=== PATIENT | female | born 1995 | race Caucasian/White ===

== ENCOUNTER 2018-07-10 02:02 | Emergency (ER) | payer BC ==
[~2018-07-10] VITALS: Ht 149.9 cm; Wt 52.2 kg
--- NOTE | 2018-07-10 02:03 | NUR ---
"I GOT ANXIOUS AND ANGRY AND GOT A RAZOR AND CUT MY LT WRIST" PT IS ALERT AND ORIENTED ABLE TO AMBULATE. VSS NO ACUTE DISTRESS AT THIS TIME. WILL CONTINUE TO MONITOR FOR ANY CHANGES DURING THE SHIFT.
--- NOTE | 2018-07-10 02:04 | NUR ---
ER AT BEDSIDE FOR EVAL
[2018-07-10 02:34] LABS: BASOPHILS % (AUTO) 0.4 % (0.0-2.0); EOSINOPHILS % (AUTO) 3.8 % (0.0-6.0); HEMATOCRIT 42 % (33-45); HEMOGLOBIN 13.8 g/dL (11.5-14.8); MEAN CORPUSCULAR HEMOGLOBIN 32 PG (26.0-33.0); MEAN CORPUSCULAR HGB CONC 33 g/dl (31.0-36.0); MEAN CORPUSCULAR VOLUME 96 fL (82-100); MONOCYTES # (AUTO) 0.3 /CMM (0.1-1.30); MONOCYTES % (AUTO) 5.6 % (2.0-12.0); NEUTROPHILS # (AUTO) 2.8 /CMM (1.8-8.9); NEUTROPHILS % (AUTO) 52.2 % (43.0-81.0); PLATELET COUNT (AUTO) 226 /CMM (150-450); RDW COEFFICIENT OF VARIATION 12.8 (11.5-15.0); RED BLOOD CELL COUNT(AUTO) 4.32 MIL/uL (4.0-5.2); WHITE BLOOD COUNT (AUTO) 5.4 K/uL (4.3-11.0)
[2018-07-10 02:35] LABS: APPEARANCE,URINE CLEAR (CLEAR); BILIRUBIN,URINE NEGATIVE (NEGATIVE); BLOOD, URINE NEGATIVE Ery/uL (NEGATIVE); COLOR,URINE YELLOW (YELLOW); KETONES,URINE NEGATIVE (NEGATIVE); LEUKOCYTE ESTERASE ,URINE NEGATIVE (NEGATIVE); NITRITE, URINE NEGATIVE (NEGATIVE); PROTEIN,URINE NEGATIVE (NEGATIVE); UGLUCOSE NEGATIVE (NEGATIVE); UROBILINOGEN,URINE 0.2 EU/dL (0.2)
[2018-07-10 02:49] LABS: CALCIUM, SERUM 8.5 mg/dL (8.5-10.1); CREATININE 0.6 mg/dL (0.6-1.3); POTASSIUM 3.4 mmol/L (3.5-5.1)
[2018-07-10 02:55] LABS: ALBUMIN 3.8 g/dL (3.4-5.0); BILIRUBIN,DIRECT 0.1 mg/dL (0.0-0.2); BILIRUBIN,TOTAL 0.3 mg/dL (0.2-1.0); TOTAL PROTEIN, SERUM 7.1 g/dL (6.4-8.2)
[2018-07-10 02:56] LABS: SALICYLATE 0.4 mg/dL (2.8-20.0)
--- NOTE | 2018-07-10 03:01 | NUR ---
ART/EMBOSSING MACHINE OPERATOR CALLED.
[2018-07-10] MEDS ORDERED: LIDOCAINE /MPF 1% VIAL 5 ML VIAL ONE (03:11)
[2018-07-10 04:15] VITALS: BP 137/79
== END 2018-07-10 04:15 | disposition home or self-care (01) ==
LOC: ER 02:03
DX: S61.512A Laceration without foreign body of left wrist, initial encounter (principal); F31.9 Bipolar disorder, unspecified; F12.10 Cannabis abuse, uncomplicated; W26.8XXA Contact with other sharp object(s), not elsewhere classified, initial encounter; Y93.89 Activity, other specified; Y92.89 Other specified places as the place of occurrence of the external cause; Y99.8 Other external cause status
CPT/HCPCS: 12001; 36415; 80048; 80076; 80305; 80329; 81001; 84703; 85025; 99284; A4606; A6402 ×2; G0480 ×2; J3490; Z7610; 81000-TC

== ENCOUNTER 2018-07-21 12:26 | Emergency (ER) | payer BC ==
[~2018-07-21] VITALS: Ht 165.1 cm; Wt 65.8 kg
[2018-07-21 12:42] VITALS: BP 101/60
== END 2018-07-21 13:29 | disposition home or self-care (01) ==
LOC: ER 12:27
DX: S51.812D Laceration without foreign body of left forearm, subsequent encounter (principal); F31.9 Bipolar disorder, unspecified; X58.XXXD Exposure to other specified factors, subsequent encounter
CPT/HCPCS: 99281; A4606; Z7610; Z7502

== ENCOUNTER 2018-08-29 19:52 | Emergency (ER) | payer BC ==
[~2018-08-29] VITALS: Ht 165.1 cm; Wt 64.2 kg
[2018-08-29 21:35] VITALS: BP 118/72
--- NOTE | 2018-08-29 22:52 | NUR ---
pt left without aci.
== END 2018-08-29 22:58 | disposition home or self-care (01) ==
LOC: ER 19:54
DX: S80.812A Abrasion, left lower leg, initial encounter (principal); F31.9 Bipolar disorder, unspecified; W01.0XXA Fall on same level from slipping, tripping and stumbling without subsequent striking against object, initial encounter; Y93.89 Activity, other specified; Y92.89 Other specified places as the place of occurrence of the external cause; Y99.8 Other external cause status
CPT/HCPCS: 99281; A4606; Z7610; Z7502